=== PATIENT | female | born 1990 | race Caucasian/White ===

== ENCOUNTER 2023-06-24 09:43 | Emergency (ER) | payer OTHER, SELFPAY ==
--- NOTE | ~2023-06-24 | XR_ITS ---
EXAMINATION: XR knee LT min 4V DATE: 06/24/2023 10:08 INDICATION: Left knee injury with anterolateral pain and swelling TECHNIQUE: Anteroposterior, 2 oblique and crosstable lateral views of the left knee were obtained COMPARISON: None. FINDINGS: 2.4 x 0.9 cm minimally displaced fracture fragment along the lateral side of the lateral femoral cond yle best appreciated on the AP and externally rotated views. There is no evident involvement of the a rticular surface of the weightbearing lateral femoral condyle although cannot exclude involvement of the lateral rim of the lateral trochlea. Alignment is otherwise normal. No other fractures identified . Small left knee joint effusion without layering lipohemarthrosis. Joint spaces appear relatively pr eserved on nonweightbearing imaging. IMPRESSION: 1. Small minimally displaced fracture along the lateral side of the lateral femoral condyle with loca tion suggesting sequela of a patellar dislocation/relocation injury. Could consider CT for more defin itive assessment of the configuration of the fracture and any potential articular surface involvement . Reviewed, dictated and finalized at location A. IMPRESSION: 1. Small minimally displaced fracture along the lateral side of the lateral fem oral condyle with location suggesting sequela of a patellar dislocation/relocat ion injury. Could consider CT for more definitive assessment of the configurati on of the fracture and any potential articular surface involvement.
[2023-06-24 09:45] VITALS: BP 169/99; PULSE 79; RESP 15; TEMP 37.3; O2SAT 100
--- NOTE | 2023-06-24 10:39 | ED.LOWEXIN ---
HPI - Extremity Injury (Lower) General Chief Complaint: Extremity Injury, Lower Stated Complaint: Left knee injury Time Seen by Provider: 06/24/23 10:09 History of Present Illness HPI Narrative: 32-year-old female reports for evaluation for left knee pain after a fall yesterday. Patient states she was playing basketball with her kids when she fell to the ground and felt 2 pops. She is unable to tell me how she fell because she admits to being a little intoxicated . She is reporting generalized knee pain and edema. She states she has not been able to bear weight since the injury. She reports increased pain with flexion and extension. Related Data Allergies Allergy/AdvReac Type Severity Reaction Status Date / Time No Known Allergies Allergy Verified 06/24/23 09:48 Review of Systems Review of Systems: CONSTITUTIONAL: Denies fever, chills EYES: Denies visual changes, redness, or discharge. ENT: Denies rhinorrhea, congestion, sore throat, or otalgia. CARDIOVASCULAR: Denies chest pain, palpitations, or edema. RESPIRATORY: Denies cough or dyspnea. GASTROINTESTINAL: Denies abdominal pain, nausea, vomiting, or diarrhea. GENITOURINARY: Denies dysuria or hematuria. SKIN: Denies rash or itching. MUSCULOSKELETAL: See HPI NEUROLOGIC: Denies headache, numbness, dizziness, or weakness. PSYCHIATRIC: Denies anxiety or depression. Exam Narrative: GENERAL: Well-appearing, in no acute distress. HEAD: Normocephalic NECK: Supple. CHEST: No respiratory distress. Clear to auscultation, no adventitious breath sounds. HEART: Regular rate and rhythm. No murmur heard. Normal peripheral pulses. EXTREMITIES: Left knee with generalized edema and tenderness, increased tenderness to the distal lateral femur. Limited flexion and extension secondary to pain. No tenderness to remainder of extremity including hip and ankle. Full range of motion of hip and ankle. Cap refill less than 2. DP pulse 2+. Sensation intact throughout. SKIN: Warm, dry, no rash. NEURO: No focal deficits. Alert and oriented x3. PSYCH: Normal mood and affect. Course Vital Signs Vital signs: Vital Signs Temperature 99.1 F 06/24/23 09:45 Pulse Rate 79 06/24/23 09:45 Respiratory Rate 15 06/24/23 09:45 Blood Pressure 169/99 H 06/24/23 09:45 Pulse Oximetry 100 06/24/23 09:45 Oxygen Delivery Room Air 06/24/23 09:45 Temperature 99.1 F 06/24/23 09:45 Pulse Rate 79 06/24/23 09:45 Respiratory Rate 15 06/24/23 09:45 Blood Pressure 169/99 H 06/24/23 09:45 Pulse Oximetry 100 06/24/23 09:45 Oxygen Delivery Room Air 06/24/23 09:45 MDM - Extremity Injury (Lower) MDM Narrative Medical decision making narrative: 32-year-old female reports for evaluation for left knee pain after an injury that occurred yesterday. See HPI for further history. Vitals significant for elevated blood pressure, otherwise unremarkable. Exam significant for generalized tenderness to the left knee with edema. She is neurovascularly intact. X-ray significant for small minimally displaced fracture along the lateral side of the left lateral femoral condyle with location suggesting sequelae of patellar dislocation/relocation injury. Could consider CT for more definitive assessment of the configuration of the fracture and any potential articular surface involvement. Discussed case with orthopedic surgeon on-call, Dr. Guevara, who advises to not obtain a CT as the patient will likely need an outpatient MRI and to place a CT in an immobilizer and crutches and close follow-up. Labs and plan discussed with patient, she is agreeable to plan. She received [place] in the ED with improvement. Encouraged Tylenol, ibuprofen, RICE, [place] for breakthrough pain. Strict ED return precautions discussed. She is agreeable to the plan verbalized understanding. Discharged in stable condition. Medical Records Attestation: I reviewed the patient's medical records. Imaging Data
[2023-06-24] MEDS: HYDROcodone/acetaminophen (*CRX) 5-325 MG TABLET 1 TAB PO (10:55)
== END 2023-06-24 11:49 | disposition home or self-care (01) ==
PROVIDERS: Emergency Provider Physician Assistant
DX: S72.422A Displaced fracture of lateral condyle of left femur, initial encounter for closed fracture (principal); W18.30XA Fall on same level, unspecified, initial encounter; Y93.67 Activity, basketball
CPT/HCPCS: 73564; 99284; A9270

== ENCOUNTER 2023-10-10 08:45 | Outpatient (RCR) | payer OTHER, SELFPAY ==
--- NOTE | 2023-07-18 13:58 | PTOPEVAL1 ---
Assessment and note entered by Dmitri Vance Evaluation Information Assessment Status Evaluation Diagnosis patellar dislocation left Onset 06/27/23 Subjective Information Pt. reports that she injured her left knee about 3 weeks ago after tripping while playing basketball . She reports that she fell directly onto her left knee. She reports that pain worsened through the night and went to the hospital. She reports she was given an immobilizer. She reports that she has some pain in the ankle at night. She states that uses ibuprofen for pain daily. 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 She reports that she has been taking her brace off at night. She reports that she had no complication prior to injury. She reports that her goal is to improve knee mobility and to walk normal to return to work. Reported Pain Level Pain Score 0: Self Report Assessment PT Clinical Summary Pt. anne 32 year old female who enters the clinic post patellar dislocation with spontaneous relocation. She is WBAT and can increase ROM as tolerated. Pt. is to be in the immobilizer brace with WB but can wean from the brace based on progression of quad control. She currently presents with pain, swelling, impaired gait, impaired ROM and l.e. weakness on this date. Pt. is very apprehensive with all activities on this date. She would benefit from continued skilled PT in order to improve these areas to all for her to achieve her goal of normal gait and return to work related duties. Plan of Care Interventions Electrical Stimulation,Gait Training,Manual Therapy,Neuro Re-education,Patient/Caregiver Education,Therapeutic Activities,Therapeutic Exercise PT Services Indicated Yes Treatment Frequency and 2x/week x 10 visits Duration These treatments will address the objective and functional deficits as defined above. The patient will be advanced safely and appropriately in order for the patient to progress towards his/her prior level of function. Additional exercises will be introduced and as well as a comprehensive home exercise program upon discharge, if needed, ?to ensure carryover of functional gains achieved in the clinic. This treatment plan has been reviewed and agreement upon by the patient.
--- NOTE | 2023-07-18 14:00 | OPREHPOC ---
Outpatient Therapy Plan of Care This is a Multidisciplinary Plan of Care that may contain components documented by all disciplines (PT, OT, and ST.) PT Problem 1 PT Problem #1 Knowledge Deficit PT Goal 1 Goal Independent with a HEP focusing on strength and mobility. Target Visit 2 PT Problem 2 PT Problem #2 Impaired Range of Motion PT Goal 1 Goal Pt. will achieve 0-130 degrees left knee AROM Target Visit 10 PT Problem 3 PT Problem #3 Impaired Gait PT Goal 1 Goal Pt. will ambulates FWB over left l.e. without an AD and be appropriate to d/c her immobilizer brace . Target Visit 10 PT Problem 4 PT Problem #4 Impaired Functional Mobil PT Goal 1 Goal Pt. will navigate steps with reciprocal pattern without use of an AD or handrails. Target Visit 10 PT Problem 5 PT Problem #5 Impaired Strength PT Goal 1 Goal Pt. will present with 5/5 quad strength and no lag with knee extension in order to d/c immobilizer brace.
--- NOTE | 2023-07-30 11:51 | PCPTNOTE ---
Pt. canceled 07/30/23 appointment noting that she was sick.
--- NOTE | 2023-08-22 10:48 | PTOPPROG ---
Assessment and note entered by Chris Zimmerman, PT Evaluation Information Assessment Status Progress Diagnosis patellar dislocation left Onset 06/27/23 Subjective Information Reports that overall she is doing well. Feels like she can walk as she needs to but has been unable to get rid of her limp. She has been doing daily chores with minimal issue. She does have some pain when not wearing her brace during chores. Has not been wearing brace outside of that in home. Assessment PT Clinical Summary Patient has come a long way in terms of strength and ROM. She continues to have significant deficits in swelling and gait with lack of terminal full stance and difficulty with heel strike. This is leading to limp and trunk sway with gait. Will continue to benefit from skilled therapy to address these deficits. She has o return to a job that requires a lot of walking and time on her feet. She will continue to need to maximize knee motion and stability to perform work related duties. Plan of Care Interventions Electrical Stimulation,Gait Training,Manual Therapy,Neuro Re-education,Patient/Caregiver Education,Therapeutic Activities,Therapeutic Exercise PT Services Indicated Yes Treatment Frequency and 2x/week for 4 weeks Duration These treatments will address the objective and functional deficits as defined above. The patient will be advanced safely and appropriately in order for the patient to progress towards his/her prior level of function. Additional exercises will be introduced and as well as a comprehensive home exercise program upon discharge, if needed, ?to ensure carryover of functional gains achieved in the clinic. This treatment plan has been reviewed and agreement upon by the patient.
--- NOTE | 2023-08-22 10:48 | OPREHPOC ---
Outpatient Therapy Plan of Care This is a Multidisciplinary Plan of Care that may contain components documented by all disciplines (PT, OT, and ST.) PT Problem 1 PT Problem #1 Knowledge Deficit PT Goal 1 Goal Independent with a HEP focusing on strength and mobility. Target Visit 2 Progress Met PT Problem 2 PT Problem #2 Impaired Range of Motion PT Goal 1 Goal Pt. will achieve 0-130 degrees left knee AROM Target Visit 12 Progress Partially Met Comment Improve but still lacking motion in both directions affecting gait. PT Problem 3 PT Problem #3 Impaired Gait PT Goal 1 Goal Pt. will ambulates FWB over left l.e. without an AD and be appropriate to d/c her immobilizer brace . Target Visit 12 Progress Partially Met Comment Independent of AD. Still show significant gait deficits requiring bracing with higher level activity. PT Goal 2 Goal Patient will ambulate with even stride length bilaterally. for full functional reciprocal control. Target Visit 16 PT Problem 4 PT Problem #4 Impaired Functional Mobil PT Goal 1 Goal Pt. will navigate steps with reciprocal pattern without use of an AD or handrails. Target Visit 16 Progress Partially Met Comment Unable to reciprocally climb without pain at this time. PT Problem 5 PT Problem #5 Impaired Strength PT Goal 1 Goal Pt. will present with 5/5 quad strength and no lag with knee extension in order to d/c immobilizer brace. Target Visit 16 Progress Partially Met Comment Strength improve but still showing pin and weakness with full contraction leading to apprehension.
--- NOTE | 2023-09-10 12:34 | PCPTNOTE ---
Pt. did have vasopneumatic compression on 09/05/23 but was not noted under the modalities section. Performed with LE propped and 50 mmHg in conjunction with ice.
--- NOTE | 2023-09-23 13:39 | PTOPPROG ---
Assessment and note entered by Chris Zimmerman, PT Evaluation Information Assessment Status Progress Diagnosis patellar dislocation left Onset 06/27/23 Subjective Information Reports that she feel she has made a lot of progress to this point in therapy. She is still apprehensive about being on her knee for a long time and still has a significant amount of swelling that she can feel with activity. She has a physically demanding job and wants to return to work but has some concerns about how her knee will hold up. Assessment PT Clinical Summary Patient has seen improvement in strength, ROM , and Gait. She is still demonstrating increased swelling and discomfort in knee with activity. 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 Plan of Care Interventions Electrical Stimulation,Gait Training,Manual Therapy,Neuro Re-education,Patient/Caregiver Education,Therapeutic Activities,Therapeutic Exercise PT Services Indicated Yes Treatment Frequency and 2x/week for 4 weeks Duration These treatments will address the objective and functional deficits as defined above. The patient will be advanced safely and appropriately in order for the patient to progress towards his/her prior level of function. Additional exercises will be introduced and as well as a comprehensive home exercise program upon discharge, if needed, ?to ensure carryover of functional gains achieved in the clinic. This treatment plan has been reviewed and agreement upon by the patient.
--- NOTE | 2023-09-23 13:40 | OPREHPOC ---
Outpatient Therapy Plan of Care This is a Multidisciplinary Plan of Care that may contain components documented by all disciplines (PT, OT, and ST.) PT Problem 1 PT Problem #1 Knowledge Deficit PT Goal 1 Goal Independent with a HEP focusing on strength and mobility. Target Visit 2 Progress Met PT Problem 2 PT Problem #2 Impaired Range of Motion PT Goal 1 Goal Pt. will achieve 0-130 degrees left knee AROM Target Visit 12 Progress Met Comment Met today. Extension motion was passive PT Problem 3 PT Problem #3 Impaired Gait PT Goal 1 Goal Pt. will ambulates FWB over left l.e. without an AD and be appropriate to d/c her immobilizer brace . Target Visit 12 Progress Met PT Goal 2 Goal Patient will ambulate with even stride length bilaterally. for full functional reciprocal control. Target Visit 20 Progress Met Comment LAcking pasive terminal knee extension in stance phase PT Problem 4 PT Problem #4 Impaired Functional Mobil PT Goal 1 Goal Pt. will navigate steps with reciprocal pattern without use of an AD or handrails. Target Visit 20 Progress Partially Met Comment Unable to reciprocally climb without pain at this time. PT Problem 5 PT Problem #5 Impaired Strength PT Goal 1 Goal Pt. will present with 5/5 quad strength and no lag with knee extension in order to d/c immobilizer brace. Target Visit 20 Progress Partially Met Comment Strength improve but still showing pin and weakness with full contraction leading to apprehension.
--- NOTE | 2023-10-03 09:22 | PCPTNOTE ---
Pt cancelled due to ill child.
--- NOTE | 2023-10-10 09:25 | PCPTNOTE ---
Pt no showed visit today accidently mixing up days and times of other appts.
== END 2023-10-11 12:38 | disposition home or self-care (01) ==
LOC: ANHPT 08:45
PROVIDERS: Visit Provider Orthopaedic Surgery
DX: S83.005D Unspecified dislocation of left patella, subsequent encounter (principal)
CPT/HCPCS: 97016; 97110; 97112; 97116; 97161; 97530

== ENCOUNTER 2023-10-17 07:42 | Outpatient (RCR) | payer OTHER, SELFPAY ==
--- NOTE | 2023-10-17 10:36 | PCPTNOTE ---
Patient was No Show for today's progress note visit.
== END 2023-12-02 16:01 | disposition home or self-care (01) ==
LOC: ANHPT 07:42
PROVIDERS: Visit Provider Orthopaedic Surgery
DX: S83.005D Unspecified dislocation of left patella, subsequent encounter (principal)
CPT/HCPCS: 99199

== ENCOUNTER 2024-05-25 08:17 | Emergency (ER) | payer OTHER, SELFPAY ==
--- NOTE | ~2024-05-25 | XR_ITS ---
EXAMINATION: XR ankle LT min 3V DATE: 05/25/2024 10:02 INDICATION: Left ankle pain and swelling. Fall. TECHNIQUE: 4 views of left ankle were obtained. COMPARISON: None. FINDINGS: Bone alignment is normal. No fracture. Joint spaces are normal. There is ankle soft tissue swelling. IMPRESSION: 1. No fracture. Reviewed, dictated and finalized at location A. IMPRESSION: 1. No fracture.
--- NOTE | ~2024-05-25 | CT_ITS ---
EXAMINATION: CT heel LT wo con DATE: 05/25/2024 10:41 INDICATION: Left calcaneus fracture. TECHNIQUE: Computed tomography (CT) of the left calcaneus was performed without intravenous contrast. Automated exposure control and iterative reconstruction technique were employed. The dose-length pro duct was 350.08 mGy-cm. COMPARISON: Left foot radiographs 05/25/2024 FINDINGS: Alignment is normal. There is a comminuted fracture of dorsal lateral aspect of the anterio r process of calcaneus with up to 3 mm displacement. Joint spaces are normal. IMPRESSION: 1. Comminuted fracture of the dorsal lateral aspect of anterior process of calcaneus. Reviewed, dictated and finalized at location A. IMPRESSION: 1. Comminuted fracture of the dorsal lateral aspect of anterior process of calc aneus.
--- NOTE | ~2024-05-25 | XR_ITS ---
EXAMINATION: XR foot LT min 3V DATE: 05/25/2024 10:02 INDICATION: Left foot pain and swelling. Fall. TECHNIQUE: 4 views of left foot were obtained. COMPARISON: None. FINDINGS: There is a comminuted avulsion fracture of dorsolateral aspect of anterior process of calca neus. Joint spaces are normal. IMPRESSION: 1. Comminuted avulsion fracture of dorsal lateral aspect of anterior process of calcaneus. Reviewed, dictated and finalized at location A.
[2024-05-25 08:23] VITALS: BP 196/115; PULSE 77; RESP 16; TEMP 36.4; O2SAT 100
--- NOTE | 2024-05-25 09:35 | ED.LOWEXIN ---
HPI - Extremity Injury (Lower) General Chief Complaint: Extremity Injury, Lower Stated Complaint: left foot pain Time Seen by Provider: 05/25/24 08:58 Source: patient Mode of arrival: ambulatory Limitations: no limitations History of Present Illness HPI Narrative: Pt is a 33-year-old female who presents to the ED with complaints of L foot pain. On Saturday morning she stepped off her back porch and is unsure if she twisted her foot or ran into something. Pt reports she took Ibuprofen at home yesterday and iced her foot through the night, although she did go to work yesterday where she's on my feet all day. Pt denies shortness of breath, chest pain, or history of blood clots. Related Data Home Medications Medication Instructions Recorded Confirmed No Home Medications 05/25/24 05/25/24 Allergies Allergy/AdvReac Type Severity Reaction Status Date / Time No Known Allergies Allergy Verified 05/25/24 08:22 Review of Systems Review of Systems: All systems reviewed & are unremarkable except as noted in HPI and below PMFSH Past Medical History Medical History Dislocation of patella, left, closed Social History Social History Smoking status: Never smoker Exam Narrative: GENERAL: Well-appearing, well-nourished and in no acute distress. CARDIAC: Regular rate and rhythm without murmurs, rubs or gallops. RESPIRATORY: Clear to auscultation bilaterally. No wheezes, rales or rhonchi. ABDOMEN: Soft, nontender, normoactive bowel sounds throughout, no guarding, no rebound. No masses appreciated. EXTREMITIES: Pt's L foot is swollen with no pitting edema. There is an oval shaped bruise on the top of her L foot that is approximately 3 inches by 2 inches. Pt has full range of motion, although there is some increased pain with medial manipulation and extension. Pt's Lata's sign is negative. Anterior drawer test negative. NEUROLOGICAL: Cranial nerves II through XII grossly intact, no focal deficits noted. Normal gait, normal speech. SKIN: Warm, dry, normal color, no rashes, no lesions. Course Reevaluation(s) Reevaluation #1: CALL BOX WIRER spoke with orthopedist who recommended obtaining a CT scan of the L foot. Date: 05/25/24 Time: 10:35 Reevaluation #2: CALL BOX WIRER spoke with orthopedist about pt's CT scan results. He suggested placing the pt in a splint and having her follow-up outpatient with orthpedics. Date: 05/25/24 Time: 11:06 Vital Signs Vital signs: Vital Signs Temperature 36.4 C 05/25/24 08:23 Pulse Rate 77 05/25/24 08:23 Respiratory Rate 16 05/25/24 08:23 Blood Pressure 196/115 H 05/25/24 08:23 Pulse Oximetry 100 05/25/24 08:23 Oxygen Delivery Room Air 05/25/24 08:23 Temperature 37.2 C 05/25/24 11:49 Pulse Rate 60 05/25/24 11:49 Respiratory Rate 18 05/25/24 11:49 Blood Pressure 194/128 H 05/25/24 11:49 Pulse Oximetry 98 05/25/24 11:49 Oxygen Delivery Room Air 05/25/24 08:23 MDM - Extremity Injury (Lower) MDM Narrative Medical decision making narrative: Pt is a 33-year-old female who presents to the ED with complaints of L foot pain. On Saturday morning she stepped off her back porch and is unsure if she twisted her foot or ran into something. Pt reports she took Ibuprofen at home yesterday and iced her foot through the night, although she did go to work yesterday where she's on my feet all day. Pt denies shortness of breath, chest pain, or history of blood clots. Pt's L foot is swollen with no pitting edema. There is an oval shaped bruise on the top of her L foot that is approximately 3 inches by 2 inches. Pt has full range of motion, although there is some increased pain with medial manipulation and extension. Pt's Lata's sign is negative. Anterior drawer test negative. CALL BOX WIRER spoke with orthopedist, who recommended pt have a CT scan done. CT results
[2024-05-25] MEDS: KETOROLAC (*BKC) 60 MG/2 ML VIAL IM (09:40)
[2024-05-25 11:03] VITALS: BP 181/111; PULSE 76; RESP 18; O2SAT 99
[2024-05-25 11:49] VITALS: BP 194/128; PULSE 60; RESP 18; TEMP 37.2; O2SAT 98
--- NOTE | 2024-06-01 19:03 | PC.NURSE ---
LATE ENTRY This note is being entered to document information to the patient's record. The following information was omitted on [06/01/24], by [Ama Posterior short leg placed on the LEFT leg].
== END 2024-05-25 11:51 | disposition home or self-care (01) ==
PROVIDERS: Emergency Provider Registered Nurse
DX: S92.022A Displaced fracture of anterior process of left calcaneus, initial encounter for closed fracture (principal); X50.0XXA Overexertion from strenuous movement or load, initial encounter
CPT/HCPCS: 29515; 73610; 73630; 73700; 96372; 99284; J1885

== ENCOUNTER 2024-08-17 06:32 | Emergency (ER) | payer OTHER, SELFPAY ==
--- NOTE | ~2024-08-17 | US_ITS ---
US OB <=14 wk fetus w TV Ordering provider: Tommy Proctor MD History: . Early and vaginal bleeding . Comparison: None. Technique: Transabdominal and endovaginal ultrasound of the pelvis (Doppler ultrasound interrogation techniques used as needed for this exam.) FINDINGS: CERVIX: Normal. UTERUS: Measures 8.4 x 3.5x 4.7 cm in length which is within normal limits and is anteverted. No adelina metrial masses. No evidence of intrauterine seen. ENDOMETRIUM: Normal in thickness measuring 4.1 mm. No endometrial masses, cysts or fluid. CUL DE SAC: Significant amount of free fluid. RIGHT OVARY: Normal in size measuring 3.2x 2.1x 1.8 cm. Normal echotexture. Doppler vascular flow pre sent. Simple Cyst is seen measuring 1.3 x 0.7 x 1.4 cm. LEFT OVARY: Normal in size measuring 3.1x 2.2x 1.8 cm. Normal echotexture. Doppler vascular flow pres ent. Complex area is is seen measuring 1.2 x 1 x 1 cm. ADNEXA: Normal. No mass. IMPRESSION: No definite intrauterine . Right ovarian cyst. Complex area in the left ovary. Significant a mount of free fluid is seen in the pelvis. Ectopic cannot be excluded. Clinical correlation and follow-up advised. Reviewed, dictated and finalized at location A. TY ENGINEER IMPRESSION: No definite intrauterine . Right ovarian cyst. Complex area in the lef t ovary. Significant amount of free fluid is seen in the pelvis. Ectopic pregna ncy cannot be excluded. Clinical correlation and follow-up advised.
[2024-08-17 06:50] LABS: BEDSIDEPREGUCG Positive (Negative)
[2024-08-17 06:51] VITALS: BP 123/87; PULSE 71; RESP 16; TEMP 36.7; O2SAT 99
[2024-08-17 07:03] LABS: Basophils Percent Auto 0.1 % (0.2-1.2); Eosinophils Absolute Auto 0.1 K/mm3 (0-0.3); Eosinophils Percent Auto 0.6 % (0-4.4); Hematocrit 35.8 % (37.0-47.0); Hemoglobin 12.2 g/dL (12.0-15.0); Immature Granulocyte Absolute 0.02 K/mm3 (0.00-0.031); Immature Granulocyte Percent A 0.2 % (0-0.5); Lymphocytes Absolute Auto 2.44 K/mm3 (0.9-3.2); Lymphocytes Percent Auto 29.4 % (18.3-44.2); Mean Corpuscular HGB Conc 34.1 g/dl (32-36); Mean Corpuscular Volume 91.1 fl (80-100); Mean Platelet Volume 9.6 fl (7.4-10.4); Monocytes Absolute Auto 0.6 K/mm3 (0.1-0.6); Monocytes Percent Auto 7.6 % (2.6-8.5); Neutrophils Absolute Auto 5.2 K/mm3 (1.3-6.7); Neutrophils Percent Auto 62.1 % (45.5-73.1); Platelet Count Result 307 k/mm3 (150-375); Red Blood Count 3.93 M/mm3 (4.2-5.4); Red Cell Distribution Width 12.4 % (11.5-14.5); White Blood Count 8.3 K/mm3 (4.5-10.0)
[2024-08-17 07:14] LABS: Prothrombin Time 13.7 Seconds (11.1-14.7)
[2024-08-17 07:15] LABS: Alanine Aminotransferase 15 U/L (6-35); Albumin Level 4.6 g/dL (3.5-5.1); Alkaline Phosphatase 56 U/L (38-126); Anion Gap 9 mmol/L (4-12); Aspartate Amino Transferase 22 U/L (14-36); Blood Urea Nitrogen 12 mg/dL (7-17); Calcium 9.1 mg/dL (8.4-10.2); Carbon Dioxide 24 mmol/L (22-30); Chloride 104 mmol/L (98-107); Estimated CRCL calculation 123 ml/min; Estimated Glomerular Filt Rate > 60; Glucose 96 mg/dL (65-110); Partial Thromboplastin Time 27.5 Seconds (22.3-36.8); Potassium 3.4 mmol/L (3.4-5.0); Sodium 137 mmol/L (137-145)
[2024-08-17] MEDS: SODIUM CHLORIDE 0.9% IV 1,000 ML 999 ML IV CONT (07:30)
[2024-08-17 07:32] LABS: Beta HCG Quantitative 852.77 mIU/ML
--- NOTE | 2024-08-17 07:44 | ED_ITS ---
HPI - General Adult General Chief complaint: Vaginal Bleeding Stated complaint: abdominal cramping; Time Seen by Provider: 08/17/24 06:52 History of Present Illness HPI narrative: 33-year-old female presents to the emergency department for evaluation for lower abdominal cramping and blood noticed while wiping. Patient states that her last menstrual cycle was at the end of June. Patient began having abdominal cramping last night and then this morning when she urinated she had blood when she wiped. Patient is still complaining of lower abdominal cramping. Patient has not yet had follow-up with [facility]. Related Data Allergies Allergy/AdvReac Type Severity Reaction Status Date / Time alcohol AdvReac Mild Hives Verified 08/17/24 06:37 Review of Systems Review of Systems: All systems reviewed & are unremarkable except as noted in HPI and below PMFSH Past Medical History Medical History Dislocation of patella, left, closed Essential (primary) hypertension Family History Family History Mother Hypertension Grandparent Hypertension Social History Social History Smoking status: Never smoker Second hand tobacco smoke exposure: Yes Alcohol intake: current Substance use: current Substance use type: marijuana Do You Feel Safe in your Home?: Yes Lack of Transportation: No Lack of Food: Never True Current Housing: I Have Housing Concerned About Future Housing: No Difficulty Paying Gas/Electric Bills: No Difficulty Paying for Meds: No Currently Unemployed: No Education: High School Diploma/GED Difficulty w/ Childcare or Family Care: No Living arrangements: with family Occupation/Education: occupation Additional occupation/education comments: [employer] Gender identity (if verbalized by the patient): Female Sexual Orientation (if Verbalized by the Patient): Straight or Heterosexual Agree to blood products: Yes Exam Narrative: APPEARANCE: Well appearing, no pain, no distress, well-nourished. HEAD: normocephalic, atraumatic. EYES: PERRLA/EOMI, conjunctivae clear. NOSE: Normal no drainage EARS:TMS clear with good light reflex. THROAT: Pharynx clear, no exudate. NECK: Supple. No adenopathy, no masses. RESPIRATORY: Airway patent, respirations nonlabored. Clear to auscultation bilaterally, no rales, rhonchi, wheezing. CARDIOVASCULAR: Regular rate and rhythm without murmurs rubs or gallops. ABDOMINAL: lower abdominal tenderness to palpation MUSCULOSKELETAL: Moves all extremities. Strength/ROM intact, No edema, No calf tenderness. NEURO: Alert. Cranial nerves II through XII intact. Good gait. Good coordination SKIN: Warm, dry. Normal Color Course Vital Signs Vital signs: Vital Signs Temperature 98.1 F 08/17/24 06:51 Pulse Rate 71 08/17/24 06:51 Respiratory Rate 16 08/17/24 06:51 Blood Pressure 123/87 08/17/24 06:51 Pulse Oximetry 99 08/17/24 06:51 Temperature 98.1 F 08/17/24 06:51 Pulse Rate 62 08/17/24 09:12 Respiratory Rate 14 08/17/24 09:12 Blood Pressure 119/73 08/17/24 09:12 Pulse Oximetry 98 08/17/24 09:12 Medical Decision Making [facility] Narrative Medical decision making narrative: 33-year-old female present to the emergency department for evaluation for abdominal pain and vaginal spotting. Patient is afebrile with no leukocytosis and hemoglobin of 12.2 INR of 1.0 patient's blood type is A positive. Patient's beta hCG was 852. Ultrasound showed no definite intrauterine . Right ovarian cyst. Complex area in the left ovary. Significant amount of free fluid is seen in the pelvis. Ectopic cannot be excluded. Clinical correlation and follow-up advised. Case was discussed with Dr. Mcdermott and patient will have close outpatient follow-up this week on Saturday. Outpatient beta h CG was ordered. Differential Diagnosis Differential Diagnosis: Ectopic , early , miscarriage, vaginal bleeding with early Vital Signs Vital Signs: Vital Signs Temperature 98.1 F 08/17/24 06:51 Pulse Rate 71 08/17/24 06:51 Respiratory Rate 16 08/17/24 06:51 Blood Pressure 123/87 08/17/24 06:51 Pulse Oximetry 99 08/17/24 06:51 Temperature 98.1 F 08/17/24 06:51 Pulse Rate 62 08/17/24 09:12 Respiratory Rate 14 08/17/24 09:12 Blood Pressure 119/73 08/17/24 09:12 Pulse Oximetry 98 08/17/24 09:12 Lab Data Lab results reviewed: Yes I reviewed the patient's lab results. 08/17/24 06:52 08/17/24 06:52 Labs: Lab Results 08/17/24 08/17/24 Range/Units 06:48 06:52 WBC 8.3 (4.5-10.0) K/mm3 RBC 3.93 L (4.2-5.4) M/mm3 Hgb 12.2 (12.0-15.0) g/dL Hct 35.8 L (37.0-47.0) % MCV 91.1 (80-100) fl MCH 31.0 (26-34) pg MCHC 34.1 (32-36) g/dl RDW 12.4 (11.5-14.5) % Plt Count 307 (150-375) k/mm3 MPV 9.6 (7.4-10.4) fl Immature Gran % (Auto) 0.2 (0-0.5) % Neut % (Auto) 62.1 (45.5-73.1) % Lymph % (Auto) 29.4 (18.3-44.2) % Ward % (Auto) 7.6 (2.6-8.5) % Eos % (Auto) 0.6 (0-4.4) % Baso % (Auto) 0.1 L (0.2-1.2) % Lymph # (Auto) 2.44 (0.9-3.2) K/mm3 Ward # (Auto) 0.6 (0.1-0.6) K/mm3 Eos # (Auto) 0.1 (0-0.3) K/mm3 Baso # (Auto) 0.0 (0.0-0.1) K/mm3 Abs Immat Gran (auto) 0.02 (0.00-0.031) K/mm3 Absolute Neuts (auto) 5.2 (1.3-6.7) K/mm3 Absolute Nucleated RBC 0.000 (0.0-0.012) K/mm3 Nucleated RBC % 0.0 (0.0-0.2) % PT 13.7 (11.1-14.7) Seconds INR 1.0 APTT 27.5 (22.3-36.8) Seconds Sodium 137 (137-145) mmol/L Potassium 3.4 (3.4-5.0) mmol/L Chloride 104 (98-107) mmol/L Carbon Dioxide 24 (22-30) mmol/L Anion Gap 9 (4-12) mmol/L BUN 12 (7-17) mg/dL Creatinine 0.60 L (0.7-1.0) mg/dL Estim Creat Clear Calc 123 ml/min Estimated GFR > 60 (59 - ) Glucose 96 (65-110) mg/dL Calcium 9.1 (8.4-10.2) mg/dL Total Bilirubin 1.0 (0.2-1.3) mg/dL AST 22 (14-36) U/L ALT 15 (6-35) U/L Alkaline Phosphatase 56 (38-126) U/L Total Protein 8.0 (6.3-8.2) g/dL Albumin 4.6 (3.5-5.1) g/dL Beta HCG, Quant 852.77 mIU/ML POC Urine HCG, Qual Positive (Negative) Blood Type A Positive Antibody Screen Negative Screen Not Reportable Baby's Blood Type Not Reportable Baby's BINTA Not Reportable Doses of RhIg Required 0 Imaging Data Radiologist's impression: Impressions Obstetrics Ultrasound 08/17/24 08:46 IMPRESSION: No definite intrauterine . Right ovarian cyst. Complex area in the left ovary. Significant amount of free fluid is seen in the pelvis. Ectopic cannot be excluded. Clinical correlation and follow-up advised. Discharge Plan Discharge Clinical Impression: Vaginal bleeding affecting early , , location unknown Patient Disposition: Home, Self-Care Condition: Stable Instructions: Antibiotic Form, Threatened Miscarriage (ED) Additional Instructions: You will need a repeat blood test on Saturday and then have follow-up with Dr. Mcdermott in the clinic on Saturday. Call to schedule the appointment. If you have any worsening symptoms then please call or return to the emergency department. Prescriptions: No Action amlodipine 10 mg tablet 10 mg PO DAILY Qty: 90 1RF hydrochlorothiazide 25 mg tablet 12.5 mg PO DAILY Qty: 90 1RF Other Ambulatory Orders: Beta HCG Quantitative (Routine) Timeframe: 2 Days Location: Determined by Patient Ordered By: Tommy Proctor Follow-up/Referrals: Shahid Moreno MD [Primary Care Provider] -
[2024-08-17] MEDS: HYDROmorphone HCL INJ (*CRX) 1 MG/ML SYR 0.5 MG IV PUSH (08:56)
[2024-08-17 09:12] VITALS: BP 119/73; PULSE 62; RESP 14; O2SAT 98
== END 2024-08-17 09:31 | disposition home or self-care (01) ==
PROVIDERS: Student in an Organized Health Care Education/Training Program; Emergency Provider Emergency Medicine; PCP Family Medicine
DX: O20.9 Hemorrhage in early pregnancy, unspecified (principal); O10.911 Unspecified pre-existing hypertension complicating pregnancy, first trimester; Z77.22 Contact with and (suspected) exposure to environmental tobacco smoke (acute) (chronic); Z3A.01 Less than 8 weeks gestation of pregnancy; Z79.899 Other long term (current) drug therapy
CPT/HCPCS: 36415; 76801; 76817; 80053; 81025; 84702; 85025; 85461; 85610; 85730; 86850; 86900; 86901; 96361; 96374; 99284; J1171; J7030

== ENCOUNTER 2024-08-19 16:53 | Outpatient (CLI) | payer OTHER, SELFPAY ==
[2024-08-19 17:43] LABS: Beta HCG Quantitative 524.89 mIU/ML
== END 2024-08-19 16:54 | disposition home or self-care (01) ==
LOC: ANHLAB 16:55
PROVIDERS: PCP Family Medicine; Visit Provider Obstetrics & Gynecology
DX: O20.0 Threatened abortion (principal); Z3A.01 Less than 8 weeks gestation of pregnancy
CPT/HCPCS: 36415; 84702

== ENCOUNTER 2024-08-20 10:26 | Outpatient (CLI) | payer OTHER, SELFPAY ==
[2024-08-20 11:29] LABS: Beta HCG Quantitative 401.41 mIU/ML
[2024-08-20 13:19] LABS: Alanine Aminotransferase 12 U/L (6-35); Alkaline Phosphatase 52 U/L (38-126); Aspartate Amino Transferase 26 U/L (14-36); Bilirubin,Total 0.5 mg/dL (0.2-1.3)
== END 2024-08-20 10:27 | disposition home or self-care (01) ==
PROVIDERS: PCP Family Medicine; Visit Provider Obstetrics & Gynecology
DX: O20.0 Threatened abortion (principal); Z3A.01 Less than 8 weeks gestation of pregnancy
CPT/HCPCS: 36415; 80076; 84702

== ENCOUNTER 2024-08-22 09:05 | Outpatient (CLI) | payer OTHER, SELFPAY | END 2024-08-22 09:06 | disposition home or self-care (01) | LOC: ANHLAB 09:07 | PROVIDERS: PCP Family Medicine; Visit Provider Obstetrics & Gynecology | DX: O20.0 Threatened abortion (principal); Z3A.00 Weeks of gestation of pregnancy not specified | CPT/HCPCS: 36415; 85461; 86850; 86900; 86901 ==

== ENCOUNTER 2024-08-25 09:05 | Outpatient (CLI) | payer OTHER, SELFPAY ==
[2024-08-25 10:10] LABS: Beta HCG Quantitative 84.35 mIU/ML
== END 2024-08-25 09:06 | disposition home or self-care (01) ==
LOC: ANHLAB 09:10
PROVIDERS: PCP Family Medicine; Visit Provider Obstetrics & Gynecology
DX: O00.90 Unspecified ectopic pregnancy without intrauterine pregnancy (principal)
CPT/HCPCS: 36415; 84702

== ENCOUNTER 2024-08-27 12:31 | Outpatient (CLI) | payer OTHER, SELFPAY ==
[2024-08-27 13:16] LABS: Beta HCG Quantitative 54.52 mIU/ML
== END 2024-08-27 12:32 | disposition home or self-care (01) ==
LOC: ANHLAB 12:35
PROVIDERS: PCP Family Medicine; Visit Provider Obstetrics & Gynecology
DX: O00.90 Unspecified ectopic pregnancy without intrauterine pregnancy (principal)
CPT/HCPCS: 36415; 84702

== ENCOUNTER 2024-09-02 15:16 | Outpatient (CLI) | payer OTHER, SELFPAY ==
[2024-09-02 16:22] LABS: Beta HCG Quantitative 17.06 mIU/ML
== END 2024-09-02 15:17 | disposition home or self-care (01) ==
LOC: ANHLAB 15:18
PROVIDERS: PCP Family Medicine; Visit Provider Obstetrics & Gynecology
DX: O20.0 Threatened abortion (principal); Z3A.01 Less than 8 weeks gestation of pregnancy
CPT/HCPCS: 36415; 84702

== ENCOUNTER 2024-09-10 09:20 | Outpatient (RCR) | payer OTHER, SELFPAY ==
[2024-09-10 10:59] LABS: Beta HCG Quantitative < 2.39 mIU/ML
== END 2024-12-09 23:59 | disposition home or self-care (01) ==
LOC: ANHLAB 09:20
PROVIDERS: PCP Family Medicine; Visit Provider Obstetrics & Gynecology
DX: O00.90 Unspecified ectopic pregnancy without intrauterine pregnancy (principal)
CPT/HCPCS: 36415; 84702

== ENCOUNTER 2025-06-21 08:22 | Emergency (ER) | payer OTHER, SELFPAY ==
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
--- NOTE | ~2025-06-21 | XR_ITS ---
EXAMINATION: XR wrist RT min 3V, 06/21/2025 8:40 CDT HISTORY: Injury, Pain with movement COMPARISON: No comparisons available. Findings: No acute fracture or malalignment. No significant degenerative changes. Soft tissues unremarkable. Impression: No acute fracture or malalignment. Reviewed, dictated and finalized at location A. Impression: No acute fracture or malalignment.
[2025-06-21 08:25] VITALS: BP 141/94; PULSE 65; RESP 15; TEMP 36.6; O2SAT 100
--- OUTSIDE RECORDS SUMMARY | 2025-06-21 08:54 | XMS_ITS | Clinical Summary ---
Author Organization [facility] Address [address] [place] [address] Care Team Providers Care Corporate Communications Specialist Name Role Phone Ronnie Moreno MD Primary Care Provider Allergies No known active allergies Medications amLODIPine (NORVASC) 10 mg tablet Take 1 tablet (10 mg total) by mouth daily 4 Active Ear Drops, carbamide peroxide, 6.5 % otic solution Administer 5 drops into each ear as needed 4 Active hydroCHLOROthia zide (HYDRODIURIL) 25 mg tablet Take 1 tablet (25 mg total) by mouth daily 4 Active Active Problems No known active problems Social History Tobacco Use Types Packs/Day Years Used Date Smoking Tobacco: Never Passive Smoke Exposure: Never Tobacco Cessation:Counseling Given: Not Answered Personal Safety Answer Date Recorded Have you ever been in or are you currently in a harmful physical or emotional relationship or is someone making you feel afraid or unsafe? 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 Gender Identity Not on file Sexual Orientation Not on file Obstetrics History Last Filed Vital Signs Vital Sign Reading Time Taken Comments Blood Pressure 116/80 06/18/2024 10:50 AM CDT Pulse 80 06/18/2024 10:50 AM CDT Temperature 37 C (98.6 F) 06/18/2024 10:50 AM CDT Respiratory Rate 14 06/18/2024 10:50 AM CDT Oxygen Saturation 99% 06/18/2024 10:50 AM CDT Inhaled Oxygen Concentration - - Weight 78.1 kg (172 lb 3.2 oz) 06/18/2024 10:50 AM CDT Height 177.8 cm (5' 10) 06/18/2024 10:50 AM CDT Body Mass Index 24.71 06/18/2024 10:50 AM CDT Plan of Treatment Health Maintenance Due Date Last Done Comments Cervical Cancer Screening 1990 Depression Screening 1990 Hepatitis C Screening 1990 Varicella Vaccines (1 of 2 - 13+ 2-dose series) 2003 Hepatitis B Screening 2008 Regular Well Visit/Exam 18-64 2008 HPV Vaccines (2 - 3-dose series) 03/10/2013 02/10/2013 Influenza Vaccine (#1) 2025 DTaP/Tdap/Td Vaccine (3 - Td or Tdap) 01/23/2026 01/24/2016, 01/04/2015 Pneumococcal vaccine <65 Aged Out No longer eligible based on patient's age to complete this topic Insurance [facility] Care Teams Corporate Communications Specialist Relationship Specialty Start Date End Date Ronnie Moreno MD [id number] [facility] [address] [address] PCP - General Family Practice 06/18/24
[2025-06-21] MEDS: ACETAMINOPHEN 500 MG TABLET 1000 MG PO (09:19)
[2025-06-21] MEDS: IBUPROFEN 400 MG TABLET 800 MG PO (09:20)
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
--- OUTSIDE RECORDS SUMMARY | 2025-06-21 10:09 | XMS_ITS | Clinical Summary ---
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
== END 2025-06-21 10:42 | disposition home or self-care (01) ==
PROVIDERS: Emergency Provider Nurse Practitioner Family; PCP Family Medicine
DX: S60.221A Contusion of right hand, initial encounter (principal); I10 Essential (primary) hypertension; W22.09XA Striking against other stationary object, initial encounter
CPT/HCPCS: 73110; 73130; 99283; A9270